=== PATIENT | male | born 1935 | race Caucasian/White ===

== ENCOUNTER 2016-10-18 07:57 | Day surgery (SDC) | payer MEDICARE, OTHER ==
[2016-10-15 10:44] LABS: HEMATOCRIT 42.7 % (40.0-51.0); HEMOGLOBIN 14.7 g/dL (13.6-17.8)
[2016-10-15 10:53] LABS: BUN (BLOOD UREA NITROGEN) 18 MG/DL (6-23); CALCIUM, SERUM 8.7 MG/DL (8.5-10.4); CHLORIDE, SERUM 106 MMOL/L (96-112); CO2 (CARBON DIOXIDE) 31 MMOL/L (24-34); CREATININE 1.27 MG/DL (0.70-1.30); GFR AFRICAN AMERICAN 62 ML/MIN (>=60); GFR NON AFRICAN AMERICAN 53 ML/MIN (>=60); GLUCOSE, SERUM 90 MG/DL (60-99); POTASSIUM, SERUM 4.2 MMOL/L (3.5-5.3); SODIUM, SERUM 139 MMOL/L (135-148)
--- NOTE | ~2016-10-18 | OP ---
Record Of Operation [facility] [address] [place]. [address] NAME: RADHA VELA : 39 STATUS : 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 POSTOPERATIVE DIAGNOSIS: Basal cell carcinoma of the left distal nasal sidewall. NAME OF OPERATION: 1. Excision of basal cell carcinoma of the left distal nasal sidewall with frozen section. 2. Reconstruction of left distal nasal sidewall defect with laterally based nasalis muscle banner-type myocutaneous flap. 3. Advanced rotation flap closure of secondary donor site defect of the nose. FINDINGS: 1.4 cm wide x 1.4 cm tall excision of basal cell carcinoma of the left distal nasal sidewall. INDICATIONS: This 81-year-old gentleman has a biopsy-proven basal cell carcinoma of the left distal nasal sidewall, and now presents for excision and reconstruction. The pros and cons, alternatives, benefits, risks, limitations, and complications, including, but not limited to, suture reaction, scarring, infection, flap loss, imponderables were discussed at length. He understands and wishes to proceed. Proper consent was obtained. No guarantees expressed. DESCRIPTION OF PROCEDURE: He was taken into the operating room and given general oral endotracheal anesthesia in the supine position. Sterile prep with Hibiclens and saline followed by isopropyl alcohol was accomplished. This was followed by isopropyl alcohol. Sterile drapes were applied. The tumor on the left distal nasal sidewall was identified and a 3 mm margin around this was marked out. The total 1.4 cm diameter excision was planned. The 12, 3, 6, and 9 o'clock positions were marked. The nose was injected with 0.5% Marcaine with 1:200,000 epinephrine, and 1% Xylocaine with 1:100,000 epinephrine. The #15C blade was used to incise around the tumor. A suture was placed at 12 o'clock. The tumor was then removed from the tumor bed with a #15 blade. The pathologist was brought into the room for orientation of the specimen and to perform frozen sections. Frozen sections returned showing margins free of tumor. A laterally based banner-type myocutaneous flap was designed. It was then incised with a #15 blade. The flap was raised above the level of the perichondrium, and periosteum of the nasal skeleton, and beneath the nasalis muscle. The hemostasis was obtained with electrocautery gently in the donor site. The donor site could not be closed primarily, and bilateral nasal flaps were developed. This was down to the nasofacial junction bilaterally. These flaps were then rotated on themselves to make sure that the nostril on the right side was not excessively raised while evaluating the extent of nostril raising that might occur on the left side. This was to balance out the nostril rims as best possible. These flaps were rotated up on themselves and secured with 5-0 Vicryl except the very top at the root of the nose where 6-0 Vicryl was used. Record Of Operation [address] [place]. [address] NAME: RADHA VELA : 39 STATUS : [facility]#: [id number] AGE: 81 ADM/REG DATE : 10/18/16 MR#: [id number] REPORT SERV DATE: 10/18/16 DICTATED BY: Oscar PYLE DATE: 10/18/16 REPORT STATUS : Draft TRANSCRIBED BY: EVELIN DATE: 10/18/16 The myocutaneous flap was then transposed into the defect and cut to fit, and sutured in place with 5-0 and 6-0 Vicryl deep and 6-0 Prolene on the skin. The skin edges of the donor site were coapted with Dermabond. The wound was cleansed with hydrogen peroxide and dried. Mastisol and paper tape were applied in multiple layers to act as a "cast" to prevent hematoma and swelling. Estimated blood loss was 20 mL. He had stopped his Plavix several days ago, but oozed considerably, but at the end of the procedure hemostasis was excellent. He was awakened, extubated, and taken recovery room in good condition having tolerated procedure well. HOME GOING INSTRUCTIONS: He was given prescriptions for Zofran 8 mg ODT #9 one dissolved orally q.6 hours p.r.n. nausea or vomiting; doxycycline 100 mg #20 one p.o. b.i.d. (antibiotic); hydrocodone 7.5 mg/325 APAP #20 one p.o. q.4-6 hours p.r.n. pain. Recheck in the office in six days. He is to keep the dressing dry and intact. He is to sleep elevated such as a recliner. He is not to use his CPAP, and that is why we want him sleeping elevated, and his understood this preoperatively. No nose blowing. WILLIAMS/EVELIN Oscar Pyle M.D. / [id number] CC: Erick Nettles M.D.
[~2016-10-18 07:57] MED LIST: ASAB PO; FOLINIC PLUS PO; LIPITOR80 MG PO; MAXIMUM D3 PO; MYRBETRIQ50 MG PO; PLAVIX PO; TIAZA5 PO
== END 2016-10-18 16:13 | disposition home or self-care (01) ==
LOC: SDC 07:57
PROVIDERS: Specialist
PROC: 0HB1XZZ Excision of Face Skin, External Approach (ICD-10-PCS; 2016-10-18)
PROC: 0KX10ZZ Transfer Facial Muscle, Open Approach (ICD-10-PCS; principal; 2016-10-18 09:45)
DX: C44.311 Basal cell carcinoma of skin of nose (principal); I25.10 Atherosclerotic heart disease of native coronary artery without angina pectoris; G47.33 Obstructive sleep apnea (adult) (pediatric); I10 Essential (primary) hypertension; Z79.82 Long term (current) use of aspirin; Z79.899 Other long term (current) drug therapy; Z82.49 Family history of ischemic heart disease and other diseases of the circulatory system; Z88.0 Allergy status to penicillin; Z98.890 Other specified postprocedural states
CPT/HCPCS: 80048; 85014; 85018; 88305; 88331; 88332; 93005; J2370; J2405; J2710; J3010